=== PATIENT | male | born 1985 | race African-American/Black ===

== ENCOUNTER 2019-04-29 00:58 | Emergency (ER) | payer OTHER ==
[~2019-04-29] VITALS: Ht 195.6 cm; Wt 106.6 kg
[2019-04-29 01:30] VITALS: BP 137/69
[2019-04-29] MEDS ORDERED: ROBAXIN 750 MG750 MG PO (01:46)
[2019-04-29] MEDS ORDERED: NAPROSYN500 MG PO (01:46)
== END 2019-04-29 02:42 | disposition home or self-care (01) ==
LOC: ER 00:58
DX: S93.491A Sprain of other ligament of right ankle, initial encounter (principal); S29.012A Strain of muscle and tendon of back wall of thorax, initial encounter; M25.511 Pain in right shoulder; F17.210 Nicotine dependence, cigarettes, uncomplicated; V49.59XA Passenger injured in collision with other motor vehicles in traffic accident, initial encounter; Y93.89 Activity, other specified; Y92.89 Other specified places as the place of occurrence of the external cause; Y99.8 Other external cause status